=== PATIENT | male | born 1970 | race Hispanic/Latino ===

== ENCOUNTER 2021-06-08 08:11 | Observation (INO) | payer OTHER ==
[2021-06-08] MEDS ORDERED: ASPIRIN EC 325 MG TAB PO ONE (08:40)
[2021-06-08] MEDS ORDERED: SODIUM CHLORIDE 0.9% 500 ML 500 ML IV SCH (09:00)
[2021-06-08] MEDS ORDERED: HEPARIN/NS 5000 UNIT/500ML 1,000 ML IR ONE (09:09)
[2021-06-08 09:15] LABS: Basophils % (Auto) 0.5 % (0.0-1.8); Eosinophils # (Auto) 0.2 K/mm3 (0.0-0.4); Eosinophils % (Auto) 3.7 % (0.0-4.3); Hematocrit 43.9 % (35.5-45.6); Hemoglobin 15.6 gm/dl (11.8-15.2); Lymphocytes # (Auto) 2.4 K/mm3 (1.2-5.4); Lymphocytes % (Auto) 36.4 % (13.4-35.0); Mean Corpuscular HGB Conc 35 % (32-34); Mean Corpuscular Volume 90 fl (84-94); Monocytes # (Auto) 0.6 K/mm3 (0.0-0.8); Monocytes % (Auto) 8.7 % (0.0-7.3); Platelet Count 139 K/mm3 (140-440); Red Cell Distribution Width 12.7 % (13.2-15.2)
[2021-06-08 09:26] LABS: INR 0.92 (0.87-1.13)
[2021-06-08 09:29] LABS: BUN/Creatinine Ratio 18; Blood Urea Nitrogen 14 mg/dL (9-20); Calcium 9.5 mg/dL (8.4-10.2); Hemolysis Index 4
[2021-06-08] MEDS: MIDAZOLAM 2 MG/2 ML INJ ONE ×2 (10:00→10:12)
[2021-06-08] MEDS: fentaNYL 100 MCG/2 ML INJ ONE ×3 (10:08→10:39)
[2021-06-08] MEDS: HEPARIN 10,000 UNITS/10 ML VIAL ONE ×4 (10:09→10:35)
[2021-06-08] MEDS: LIDOCAINE (2%) 20 MG/1 ML VIAL 20 ML MDV INFILTRATI ONE ×2 (10:09→10:17)
[2021-06-08] MEDS: VERAPAMIL 5 MG/2 ML INJ ONE ×3 (10:09→10:22)
[2021-06-08] MEDS: NITROGLYCERIN SYRINGE 3 ML ONE ×2 (10:11→10:19)
[2021-06-08] MEDS ORDERED: MIDAZOLAM 2 MG/2 ML INJ ONE (10:20)
[2021-06-08] MEDS ORDERED: PRASUGREL 10 MG TAB PO ONE (11:03)
[2021-06-08] MEDS ORDERED: HEPARIN 10,000 UNITS/10 ML VIAL ONE (11:07)
[2021-06-08] MEDS ORDERED: MORPHINE 2 MG/1 ML INJ IV PRN (11:10)
[2021-06-08] MEDS ORDERED: HYDROcodone/ACETAMINOPHEN 5-325 MG TAB PO PRN (11:10)
--- NOTE | 2021-06-08 11:49 | Electrocardiograph Report ---
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
--- NOTE | 2021-06-08 12:31 | Short Stay Summary ---
Short Stay Documentation Date of service: 06/08/21 - History H&P: obtained from office - Allergies and Medications Current Medications: Allergies No Known Allergies Allergy (Unverified 06/08/21 08:39) Home Medications Medication Instructions Recorded Confirmed Last Taken Type Aspirin EC [Halfprin EC] 81 mg PO DAILY 06/08/21 06/08/21 06/07/21 History 81 mg ISOSORBIDE MONOnitrate [Imdur ER] 30 mg PO DAILY 06/08/21 06/08/21 06/07/21 History 30 mg Metformin HCl [metFORMIN] 1,000 mg PO BID 06/08/21 06/08/21 06/07/21 History 1000 mg Metoprolol Xl [Metoprolol 50 mg PO DAILY 06/08/21 06/08/21 06/07/21 History SUCCINATE ER TAB] 50 mg Omeprazole 20 mg PO DAILY 06/08/21 06/08/21 06/07/21 History 20 mg Testosterone Cypionate [Testone 1.5 ml IM Q2W 06/08/21 06/08/21 06/07/21 History Cik] 1.5ml Venlafaxine [Effexor 37.5mg tab] 37.5 mg PO DAILY 06/08/21 06/08/21 06/07/21 History 37.5mg buPROPion XL [Wellbutrin XL] 300 mg PO DAILY 06/08/21 06/08/21 06/07/21 History 300 mg glipiZIDE [Glucotrol] 10 mg PO DAILY 06/08/21 06/08/21 06/07/21 History 10 mg Active Medications Hydrocodone Bitart/Acetaminophen (Hydrocodone/Acetaminophen 5-325 Mg Tab) 1 each PO Q6H PRN PRN Reason: Pain, Moderate (4-6) Aspirin (Aspirin 81 Mg Tab Chew) 81 mg PO QDAY LA Atorvastatin Calcium (Atorvastatin 40 Mg Tab) 80 mg PO QHS LA Sodium Chloride (Nacl 0.9% 500 Ml) 500 mls @ 50 mls/hr IV DIRECT LA Stop: 06/08/21 18:59 Last Admin: 06/08/21 09:34 Dose: 50 mls/hr Documented by: Isosorbide Mononitrate (Isosorbide Mononitrate Er 30 Mg Tab) 30 mg PO QDAY LA Metoprolol Succinate (Metoprolol Succinate Xl 50 Mg Tab) 50 mg PO QDAY [facility] Morphine Sulfate (Morphine 2 Mg/1 Ml Inj) 2 mg IV Q5MIN PRN PRN Reason: Chest Pain unrelieved by NTG Prasugrel (Prasugrel 10 Mg Tab) 10 mg PO QDAY LA Ranolazine (Ranolazine Er 500 Mg Tab 12hr) 500 mg PO BID LA - Physical exam Integumentary: other (dressing clean, dry, and intact. no bleeding or hematoma) - Brief post op/procedure progress note Date of procedure: 06/08/21 Pre-op diagnosis: unstable angina Post-op diagnosis: other (CAD s/p PCI with 2 SIDNEY) Anesthesia: local - Hospital course Hospital course: Patient has severe single-vessel coronary artery disease with 99% culprit lesion in the mid LAD successful PCI with drug-eluting stent x2, estimated EF 55 to 60%. Echo pending - Disposition Condition at discharge: Good Disposition: 01 HOME / SELF CARE / HOMELESS Short Stay Discharge Plan Activity: advance as tolerated Diet: low fat, low cholesterol, low salt Wound: keep clean and dry, per your surgeon's advice Follow up with: BEBO ANDERSON MD [Primary Care Provider] - 7 Days DEJAH LUNA MD [Staff Physician] - 07/06/21 3:30 pm (Patient has follow up appointmnt with Dr. Luna on 07/06/2021 at 3:30pm at our [place] location)
--- NOTE | 2021-06-08 13:13 | Cardiac Catherization Report ---
DATE OF PROCEDURE: 06/08/2021 CARDIAC CATHETERIZATION REFERRING PHYSICIAN: Sunil Luna MD INDICATIONS FOR PROCEDURE: The patient is a very pleasant 51-year-old gentleman who presents due to unstable angina despite optimal medical therapy. He is claustrophobic and unable to go to stress test. He presents for urgent catheterization due to unstable angina. Risks, benefits and alternatives were discussed prior to obtaining informed consent. 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 Quan's test in right hand is normal. A 2 mL of 2% lidocaine was used to anesthetize the right wrist. A standard 6-Syriac hydrophilic sheath was used to cannulate the right radial artery via modified Seldinger technique. All exchanges performed to exchange a J-tip guidewire. JL3.5 catheter was used to engage the left main. No dampening or ventricularization. Cineangiography was performed in all projections. JR4 catheter used to cross the aortic valve under fluoroscopic guidance. Left ventriculography was performed in 30 MINA and 30 [place] projections via hand injections, catheter flushed. Manual pullback performed with continuous pressure monitoring. Next, catheter was used to engage the right coronary. No dampening or ventricularization. Cineangiography was performed in multiple projections. DATA: Aortic pressure is 150/80, LV pressure is 150, LVEDP of 15 mmHg. Left ventriculography reveals normal systolic performance, estimated ejection fraction of 55-60%. No evidence of aortic stenosis. CORONARY ANATOMY: This is a right dominant system. Right coronary is a moderate-sized vessel, courses AV groove, distally bifurcates in the posterior descending and posterolateral branches. No discrete stenoses noted. Left main without evidence of disease. It bifurcates in the left anterior descending, left circumflex. Left circumflex is a moderate-sized vessel, courses AV groove, 25% stenosis, but no significant disease. LAD is a moderate-sized vessel, courses anterior interventricular groove, wraps around the apex. There are tandem 99% stenoses in the mid LAD, diffuse small vessel disease in the distal periapical LAD is noted. I believe these two mid LAD lesions are the culprits. It should be noted that the patient with injections has chest pain and ST changes. We decided to proceed with PCI. Additional heparin was given. Abnormal ACT confirmed. The patient already loaded with aspirin, loaded with Effient at this point. An EBU 3.5 guide used to engage the left main without difficulty. A [place] wire was used to cross the lesion without difficulty. Next, we used a 2.5 x 12 balloon to predilate the lesion. Next, we used overlapping Resolute Cornel stents, 2.5 x 26 with 2.5 x 15. We postdilated the overlap with a 2.5 balloon at 12 ARABELLA for 30 seconds. Excellent angiographic result, no dissection. Intravascular ultrasound was performed. Multiple passes are made, reveals a well-apposed, well-expanded stent, no dissection. The patient is clinically doing well. Chest pain and ST changes were resolved. Please note that the distal periapical small vessel disease remains present. Recommend medical therapy, likely with Ranexa. The patient is loaded with Effient and aspirin, doing well at this point. No complications were identified. CONCLUSIONS: 1. Severe single vessel coronary artery disease in the presence of unstable angina with 99% tandem culprit lesions in the mid LAD, successful IVUS-guided PCI with drug-eluting stent x 2 (Resolute 2.5 x 26, Resolute 2.5 x 15) with excellent final angiographic and ultrasonographic result, 0% residual stenosis. Please note, there is significant periapical small distal diffuse disease. We will treat this medically. No other significant obstructive disease identified. Normal LV function, estimated ejection fraction 55-60%. 2. Continue aspirin, Effient. We will initiate statin therapy as well as Ranexa therapy. Side effect profile discussed. Recommend stopping testosterone. Also, we will check echocardiogram while the patient is here. Followup with Dr. Luna in the office. Results of procedure were explained at length to the patient and family. Standard radial care. TID: [id number] RECEIPT: [id number] ALVINO/RAYSHAWN/BRIAN
[2021-06-08] MEDS: METOPROLOL SUCCINATE XL 50 MG TAB PO SCH (14:11)
[2021-06-08] MEDS: RANOLAZINE ER 500 MG TAB 12HR PO SCH ×2 (14:11→21:31)
[2021-06-08] MEDS: INSULIN REGULAR, HUMAN 100 UNITS/1 ML SUB-Q SCH ×2 (15:20→23:17)
[2021-06-08] MEDS ORDERED: PROPRANOLOL 40 MG TAB ONE (21:28)
[2021-06-08] MEDS: PANTOPRAZOLE 40 MG TAB PO SCH (23:14)
--- NOTE | 2021-06-09 04:06 | XRay Report ---
CHEST 1 VIEW INDICATION / CLINICAL INFORMATION: Dyspnea FINDINGS: SUPPORT DEVICES: None. HEART / MEDIASTINUM: No significant abnormality. LUNGS / PLEURA: No significant pulmonary or pleural abnormality. No pneumothorax. ADDITIONAL FINDINGS: No significant additional findings. IMPRESSION: 1. No acute findings. Signer Name: Clay Alexander MD Signed: 06/09/2021 4:02 AM Workstation Name: [id number]
[2021-06-09 05:07] LABS: Basophils % (Auto) 0.5 % (0.0-1.8); Eosinophils # (Auto) 0.2 K/mm3 (0.0-0.4); Eosinophils % (Auto) 2.7 % (0.0-4.3); Hematocrit 43.5 % (35.5-45.6); Hemoglobin 15.4 gm/dl (11.8-15.2); Lymphocytes # (Auto) 2.8 K/mm3 (1.2-5.4); Lymphocytes % (Auto) 33.5 % (13.4-35.0); Mean Corpuscular HGB Conc 35 % (32-34); Mean Corpuscular Volume 90 fl (84-94); Monocytes # (Auto) 0.8 K/mm3 (0.0-0.8); Monocytes % (Auto) 9.8 % (0.0-7.3); Platelet Count 140 K/mm3 (140-440); Red Blood Count 4.84 M/mm3 (3.65-5.03); Red Cell Distribution Width 12.4 % (13.2-15.2)
[2021-06-09 05:23] LABS: BUN/Creatinine Ratio 13; Blood Urea Nitrogen 12 mg/dL (9-20); Calcium 9.4 mg/dL (8.4-10.2); Hemolysis Index 5
[2021-06-09] MEDS: INSULIN REGULAR, HUMAN 100 UNITS/1 ML SUB-Q SCH ×3 (07:06→10:42)
[2021-06-09 09:23] VITALS: BP 148/80
[2021-06-09] MEDS ORDERED: ASPIRIN 81 MG TAB CHEW PO SCH (10:00)
[2021-06-09] MEDS: METOPROLOL SUCCINATE XL 50 MG TAB PO SCH (10:30)
[2021-06-09] MEDS: RANOLAZINE ER 500 MG TAB 12HR PO SCH (10:30)
--- NOTE | 2021-06-09 10:34 | Electrocardiograph Report ---
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
--- NOTE | 2021-06-09 10:37 | Electrocardiograph Report ---
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
[2021-06-09] MEDS: PANTOPRAZOLE 40 MG TAB PO SCH (10:43)
[2021-06-09] MEDS ORDERED: PRASUGREL 10 MG TAB PO SCH (12:00)
--- NOTE | 2021-06-09 12:13 | Progress Note ---
Assessment and Plan Echo reviewed - EF 50-55%, mild diastolic dysfunction. Continue bASA, Effient, high-intensity statin, Toprol 50mg daily, Imdur 30mg daily, and Ranexa 500mg BID. Continue aggressive risk factor modification. Lifestyle changes, including exercise/weight loss and dietary changes, discussed at bedside. Recommend outpatient sleep study to re-obtain CPAP if warranted. Currently stable cardiac status. Follow-up with Dr. Luna on 07/06/2021 @ 3:30pm ([phone]). Pt seen in conjunction with Dr. Evens Reese, who agrees with the assessment and plan of care. - Patient Problems (1) CAD (coronary artery disease), [place] coronary artery Current Visit: Yes Status: Acute Qualifiers: [place] vs. transplanted heart: [place] heart (2) Stented coronary artery Current Visit: Yes Status: Acute (3) HTN (hypertension) Current Visit: Yes Status: Chronic Qualifiers: Hypertension type: primary hypertension Qualified Code(s): I10 - Essential (primary) hypertension (4) HLD (hyperlipidemia) Current Visit: Yes Status: Chronic Qualifiers: Hyperlipidemia type: mixed hyperlipidemia Qualified Code(s): E78.2 - Mixed hyperlipidemia (5) DM2 (diabetes mellitus, type 2) Current Visit: Yes Status: Chronic (6) OBI (obstructive sleep apnea) Current Visit: Yes Status: Chronic Subjective Date of service: 06/09/21 Principal diagnosis: CAD Interval history: S/p PCI of LAD with SIDNEY x 2 yesterday. Tolerated well. Resting comfortably in bed. Reports mild SOB overnight in the setting of known OBI (non-compliant with CPAP). Otherwise no cardiac complaints. SR 70s on tele, no events. Objective Last Vital Signs Temp 97.7 F 06/09/21 08:06 Pulse 70 06/09/21 08:06 Resp 18 06/09/21 08:06 BP 148/80 06/09/21 08:06 Pulse Ox 96 06/09/21 08:06 - Physical Examination General: No Apparent Distress HEENT: Positive: EOMI, Normocephaly, Mucus Membranes Moist Neck: Positive: neck supple, trachea midline. Negative: JVD/HJR Cardiac: Positive: Reg Rate and Rhythm, S1/S2. Negative: Audible Murmur Lungs: Positive: clear to auscultation Neuro: Positive: Grossly Intact Abdomen: Positive: Soft. Negative: Tender Skin: Negative: Rash Incision: Cardiac Cath Site (R radial - clean/dry/intact, no evidence of bleeding or hematoma) Musculoskeletal: No Pain, Normal Range of Motion Extremities: Present: upper extr. pulses, lower extr. pulses. Absent: edema - Labs and Meds CBC 06/09/21 Range/Units 04:27 WBC 8.2 (4.5-11.0) K/mm3 RBC 4.84 (3.65-5.03) M/mm3 Hgb 15.4 H (11.8-15.2) gm/dl Hct 43.5 (35.5-45.6) % Plt Count 140 (140-440) K/mm3 Lymph # (Auto) 2.8 (1.2-5.4) K/mm3 [place] # (Auto) 0.8 (0.0-0.8) K/mm3 Eos # (Auto) 0.2 (0.0-0.4) K/mm3 Baso # (Auto) 0.0 (0.0-0.1) K/mm3 Comprehensive Metabolic Panel 06/09/21 Range/Units 04:27 Sodium 140 (137-145) mmol/L Potassium 3.9 (3.6-5.0) mmol/L Chloride 101.7 (98-107) mmol/L Carbon Dioxide 27 (22-30) mmol/L BUN 12 (9-20) mg/dL Creatinine 0.9 (0.8-1.3) mg/dL Glucose 150 H (75-100) mg/dL Calcium 9.4 (8.4-10.2) mg/dL - Imaging and Cardiology EKG: report reviewed, image reviewed Echo: report reviewed Cardiac cath: report reviewed - Telemetry EKG Rhythm: Sinus Rhythm - EKG Sinus rhythms and dysrhythmias: sinus rhythm
[2021-06-09] MEDS ORDERED: ONDANSETRON 4 MG/2 ML INJ IV ONE (14:22)
== END 2021-06-09 14:57 | disposition home or self-care (01) ==
LOC: CATHLABREC 08:11 → 4A 11:10
PROVIDERS: ADMIT Internal Medicine; ATTEND Internal Medicine
DX: I25.110 Atherosclerotic heart disease of native coronary artery with unstable angina pectoris (principal); I10 Essential (primary) hypertension; E11.9 Type 2 diabetes mellitus without complications; E78.2 Mixed hyperlipidemia; G47.33 Obstructive sleep apnea (adult) (pediatric); R06.02 Shortness of breath; Z79.82 Long term (current) use of aspirin; Z79.84 Long term (current) use of oral hypoglycemic drugs; Z95.1 Presence of aortocoronary bypass graft
CPT/HCPCS: 36415; 71045; 80048; 82962; 84484; 85025; 85610; 92978; 93005; 93306; 93458; 96360; 96361; 96372; A9270; C1725; C1753; C1769; C1874; C1887; C1894; C9600; G0378; J1644; J2250; J3010; J7040; 92928; J1815; Q9967